=== PATIENT | male | born 1970 | race Caucasian/White ===

== ENCOUNTER 2022-09-29 16:53 | Emergency (ER) | payer OTHER ==
[2022-09-29] MEDS ORDERED: ONDANSETRON 4 MG/2 ML VIAL ONE (17:31)
[2022-09-29] MEDS ORDERED: NA CHLORIDE 0.9% 500 ML ONE (17:31)
[2022-09-29] MEDS ORDERED: MORPHINE 4 MG/ML SYR ONE (17:31)
[2022-09-29] MEDS ORDERED: NA CHLORIDE 0.9% 1,000 ML ONE ×2 (17:32→19:47)
[2022-09-29] MEDS ORDERED: FAMOTIDINE 20 MG/2 ML VIAL IV ONE (17:32)
[2022-09-29 17:46] LABS: Absolute Lymphocytes (CBC) 0.8 K/uL (0.7-4.9); Hematocrit 40.9 % (39.6-49.0); Lymphocytes % 7.4 % (15.3-44.8); MCV 91.9 fL (80-100); MPV 8.7 fL (7.6-11.3); RBC Red Blood Cell Count 4.45 M/uL (4.33-5.43)
--- NOTE | 2022-09-29 17:46 | RAD REPORT ---
EXAM DESCRIPTION: RAD - Chest Single View - 09/29/2022 5:34 pm CLINICAL HISTORY: COUGH COMPARISON: No comparisons FINDINGS: Lines: None. Lungs: No evidence of edema or pneumonia. Pleural: No significant pleural effusions or pneumothorax. Cardiac: The heart size is within normal limits. Mediastinum: Within normal limits. Bones: No acute fractures. Other: None IMPRESSION: No acute cardiopulmonary disease.
[2022-09-29 17:55] LABS: Bilirubin Direct 0.1 mg/dL (0-0.2); Bilirubin Indirect, Calculated 0.4 mg/dL (0.2-0.8); Bilirubin Total 0.5 mg/dL (0.2-1.0); Protein, Total 7.8 g/dL (6.4-8.2); Troponin High Sensitivity 4.4 pg/mL (<58.9)
[2022-09-29 18:02] LABS: Magnesium 2.2 mg/dL (1.6-2.4); Potassium 3.9 mEq/L (3.5-5.1)
--- NOTE | 2022-09-29 18:41 | RAD REPORT ---
EXAM DESCRIPTION: CTStone Protocol - 09/29/2022 6:26 pm CLINICAL HISTORY: Flank pain;Abd pain COMPARISON: No comparisons TECHNIQUE: CT of the abdomen and pelvis was performed without contrast. All CT scans are performed using dose optimization technique as appropriate and may include automated exposure control or mA/KV adjustment according to patient size. FINDINGS: Lower chest: Small hiatal hernia. Thickened distal esophagus which may reflect esophagitis . Liver: No acute abnormality or suspicious lesions. Biliary: No biliary ductal dilatation. Stomach: No significant focal abnormality. Duodenum: No significant focal abnormality. Pancreas: No significant abnormality. Spleen: No significant abnormality. Adrenal: No suspicious lesions. Kidney/ureter: Mild left-sided hydronephrosis. 4 mm stone in the left proximal ureter. Additional geeta ateral renal calculi noted. Low-density left renal lesions noted which are incompletely assessed with out IV contrast but statistically in based on the morphology would suggest a benign process. Retroperitoneum: No retroperitoneal adenopathy. Vascular: No aneurysm. Mild atherosclerosis . Bowel: Normal appendix. No bowel obstruction.. Peritoneum: No ascites or free air. Bladder: Grossly unremarkable. Reproductive: No adnexal masses. Bones: No acute fracture. Other: n/a IMPRESSION: Mild left-sided hydronephrosis secondary to a 4 mm stone in the left proximal ureter. Left renal lesions most likely representing cysts. Consider nonemergent renal ultrasound to confirm.
--- NOTE | 2022-09-29 18:57 | ER ---
Nurse's Notes [facility] Name: Abiel Knott Age: 52 yrs Sex: Male : 1970 Arrival Date: 09/29/2022 Time: 16:53 Bed 2 Private MD: Diagnosis: Abdominal pain, unspecified;Hydronephrosis with renal and ureteral calculous obstruction-4 MM DISTAL LEFT Presentation: 09/29 17:03 Chief complaint: Patient states: left sided flank pain started at noon, after eating, iw vomited once, pain 10/10. no hx of kidney stones. Coronavirus screen: At this time, the client does not indicate any symptoms associated with coronavirus-19. Ebola Screen: Patient negative for fever greater than or equal to 101.5 degrees Fahrenheit, and additional compatible Ebola Virus Disease symptoms Patient denies exposure to infectious person. Patient denies travel to an Ebola-affected area in the 21 days before illness onset. No symptoms or risks identified at this time. Initial Sepsis Screen: Does the patient meet any 2 criteria? No. Patient's initial sepsis screen is negative. Does the patient have a suspected source of infection? No. Patient's initial sepsis screen is negative. Risk Assessment: Do you want to hurt yourself or someone else? Patient reports no desire to harm self or others. Onset of symptoms was September 29, 2022. 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 - Family history:: not pertinent. - Social history:: Smoking status: unknown. Screenin:08 [facility] ED Fall Risk Assessment (Adult) History of falling in the last 3 months, iw including since admission Score/Fall Risk Level 0 - 2 = Low Risk. Abuse screen: Denies threats or abuse. Denies injuries from another. Nutritional screening: No deficits noted. Tuberculosis screening: No symptoms or risk factors identified. Assessment: 17:30 General: Appears uncomfortable, ill, Behavior is cooperative, agitated, anxious. Pain: iw Complains of pain in left low back and left mid back Pain radiates to abdomen. Neuro: Level of Consciousness is awake, alert, obeys commands, Oriented to person, place, time, situation, Moves all extremities. Full function. Respiratory: Respiratory effort is even, unlabored, Respiratory pattern is regular. GI: Bowel sounds present X 4 quads. Abd is soft X 4 quads Reports nausea. : Reports pain in left flank(s). Derm: Skin Skin is clammy, Skin is pale. 18:36 Reassessment: Patient appears in no apparent distress at this time. Patient and/or iw family updated on plan of care and expected duration. Pain level reassessed. Patient is alert, oriented x 3, equal unlabored respirations, skin warm/dry/pink. Patient states feeling better. 19:55 Reassessment: Patient and/or family updated on plan of care and expected duration. Pain ha1 level reassessed. Patient is alert, oriented x 3, equal unlabored respirations, skin warm/dry/pink. Patient states feeling better. Patient states symptoms have improved. Vital Signs: 17:03 BP 135 / 93; Pulse 64; Resp 19; Pulse Ox 98% on R/A; Weight 77.11 kg; Height 5 ft. 11 iw in. ; Pain 10/10; 18:46 BP 115 / 75; Pulse 83; Resp 16; Temp 97.5; Pulse Ox 95% ; iw 19:56 BP 118 / 69; Pulse 80; Resp 15 S; Pulse Ox 96% on R/A; ha1 17:03 Body Mass Index 23.71 (77.11 kg, 180.34 cm) iw 17:03 Pain Scale: Adult iw ED Course: 16:54 Patient arrived in ED. am2 16:57 Rossy Goldman, RN is Primary Nurse. iw 16:59 Feliz Flannery MD is Attending Physician. chapin 17:04 Triage completed. iw 17:04 Arm band placed on. iw 17:36 XRAY Chest (1 view) In Process Unspecified. EDMS 17:40 Missed attempt(s): 22 gauge in left antecubital area. Bleeding controlled, band aid iw applied, catheter tip intact. 17:50 Missed attempt(s): 22 gauge in right antecubital area. Bleeding controlled, band aid iw applied, catheter tip intact. 18:08 Patient has correct armband on for positive identification. Bed in low position. iw Provided Education on: IV insertion . 18:22 Inserted saline lock: 20 gauge in left upper arm, using aseptic technique. Blood iw collected. IV inserted by TRACI Gayle via US. 18:27 CT Stone Protocol In Process Unspecified. EDIA 18:56 Jose Hamilton MD is Referral Physician. [facility] 19:56 No provider procedures requiring assistance completed. IV discontinued, intact, ha1 bleeding controlled, No redness/swelling at site. Pressure dressing applied. Administered Medications: 18:15 Not Given (Duplicate Order): NS 0.9% IV 500 ml IV at bolus once chapin 18:35 Drug: morphine IVP or IV 4 mg Route: IVP; Infused Over: 4 mins; Site: left upper arm; iw 18:35 Drug: Ondansetron IVP 4 mg Route: IVP; Site: left upper arm; iw 18:35 Drug: NS 0.9% IV 1000 ml Route: IV; Rate: 1 bolus; Site: left upper arm; iw 18:36 Drug: Famotidine IVP 20 mg Route: IVP; Site: left upper arm; iw 19:50 Not Given (Physician Discretion): NS 0.9% IV 1000 ml IV at 1 bolus Per protocol; 1000 kl mL bolus 19:51 Drug: Flomax PO 0.4 mg Route: PO; jb4 19:51 Drug: Rocephin IV 1 grams Route: IV; Rate: per protocol; Site: left upper arm; jb4 19:51 Drug: Ketorolac IVP 30 mg Route: IVP; Site: left upper arm; jb4 Medication: 18:08 VIS not applicable for this client. Outcome: 18:57 Discharge ordered by . [facility] 19:56 Discharged to Law Enforcement ha1 19:56 Condition: stable 19:56 Discharge instructions given to patient, residential officers. Instructed on discharge instructions, follow up and referral plans. medication usage, Demonstrated understanding of instructions, follow-up care, medications, Prescriptions given X 4. 19:58 Patient left the ED. ha1 Signatures: Dispatcher [employer] EDIA Feliz Flannery MD MD cha Williams, Irene RN TRACI Frank Mantilla RN RN jb4 Rae Quiroz am2 [place] RN RN ha1 Malena Roberto RN
--- NOTE | 2022-09-29 18:57 | EDPHYS ---
Physician Documentation [facility] Name: Abiel Knott Age: 52 yrs Sex: Male : 1970 Arrival Date: 09/29/2022 Time: 16:53 Bed 2 Private MD: ED Physician Feliz Flannery HPI: 09/29 18:16 This 52 yrs old Male presents to ER via Law Enforcement with complaints of chapin Abdominal Pain. 18:16 The patient presents with abdominal pain in the upper abdomen, in the lower abdomen, chapin abdominal distention in the upper abdomen, in the lower abdomen. Onset: The symptoms/episode began/occurred just prior to arrival. The patient complains of pain in the left low back and left mid back. The pain radiates to the left low back and left mid back. Onset: The symptoms/episode began/occurred today. Onset: The symptoms/episode began/occurred acutely. Modifying factors: The symptoms are alleviated by nothing. the symptoms are aggravated by nothing. Associated signs and symptoms: The patient has no apparent associated signs or symptoms. The symptoms do not radiate. The symptoms are described as sharp. Historical: - Allergies: 17:04 No Known Allergies; iw - Home Meds: 17:04 None [Active]; iw - PMHx: 17:04 Hep C-remission; iw - PSHx: 17:04 hernia; iw - Immunization history:: Adult Immunizations unknown. - Family history:: not pertinent. - Social history:: Smoking status: unknown. ROS: 18:16 Constitutional: Negative for fever, chills, and weight loss, Eyes: Negative for injury, chapin pain, redness, and discharge, ENT: Negative for injury, pain, and discharge, Neck: Negative for injury, pain, and swelling, Cardiovascular: Negative for chest pain, palpitations, and edema, Respiratory: Negative for shortness of breath, cough, wheezing, and pleuritic chest pain, : Negative for injury, bleeding, discharge, and swelling, MS/Extremity: Negative for injury and deformity, Skin: Negative for injury, rash, and discoloration, Neuro: Negative for headache, weakness, numbness, tingling, and seizure, Psych: Negative for depression, anxiety, suicide ideation, homicidal ideation, and hallucinations, Allergy/Immunology: Negative for hives, rash, and allergies, Endocrine: Negative for neck swelling, polydipsia, polyuria, polyphagia, and marked weight changes. 18:16 Respiratory: Positive for 18:16 Abdomen/GI: Positive for abdominal pain, of the anterior aspect of left lateral abdomen, posterior aspect of left lateral abdomen, left upper quadrant and left lower quadrant. 18:16 Back: Positive for flank pain, on the left. Exam: 18:16 Constitutional: This is a well developed, well nourished patient who is awake, alert, chapin and in no acute distress. Head/Face: Normocephalic, atraumatic. Eyes: Pupils equal round and reactive to light, extra-ocular motions intact. Lids and lashes normal. Conjunctiva and sclera are non-icteric and not injected. Cornea within normal limits. Periorbital areas with no swelling, redness, or edema. ENT: Nares patent. No nasal discharge, no septal abnormalities noted. Tympanic membranes are normal and external auditory canals are clear. Oropharynx with no redness, swelling, or masses, exudates, or evidence of obstruction, uvula midline. Mucous membranes moist. Neck: Trachea midline, no thyromegaly or masses palpated, and no cervical lymphadenopathy. Supple, full range of motion without nuchal rigidity, or vertebral point tenderness. No Meningismus. Chest/axilla: Normal chest wall appearance and motion. Nontender with no deformity. No lesions are appreciated. Cardiovascular: Regular rate and rhythm with a normal S1 and S2. No gallops, murmurs, or rubs. Normal PMI, no JVD. No pulse deficits. Respiratory: Lungs have equal breath sounds bilaterally, clear to auscultation and percussion. No rales, rhonchi or wheezes noted. No increased work of breathing, no retractions or nasal flaring. Abdomen/GI: Soft, non-tender, with normal bowel sounds. No distension or tympany. No guarding or rebound. No evidence of tenderness throughout. Back: No spinal tenderness. No costovertebral tenderness. Full range of motion. Male : Normal genitalia with no discharge or lesions. Skin: Warm, dry with normal turgor. Normal color with no rashes, no lesions, and no evidence of cellulitis. MS/ Extremity: Pulses equal, no cyanosis. Neurovascular intact. Full, normal range of motion. Neuro: Awake and alert, GCS 15, oriented to person, place, time, and situation. Cranial nerves II-XII grossly intact. Motor strength 5/5 in all extremities. Sensory grossly intact. Cerebellar exam normal. Normal gait. Psych: Awake, alert, with orientation to person, place and time. Behavior, mood, and affect are within normal limits. 18:59 ECG was reviewed by the Attending Physician. chapin Vital Signs: 17:03 BP 135 / 93; Pulse 64; Resp 19; Pulse Ox 98% on R/A; Weight 77.11 kg; Height 5 ft. 11 iw in. ; Pain 10/10; 18:46 BP 115 / 75; Pulse 83; Resp 16; Temp 97.5; Pulse Ox 95% ; iw 19:56 BP 118 / 69; Pulse 80; Resp 15 S; Pulse Ox 96% on R/A; ha1 17:03 Body Mass Index 23.71 (77.11 kg, 180.34 cm) iw 17:03 Pain Scale: Adult iw MDM: 17:00 Patient medically screened. chapin 18:20 Differential diagnosis: UTI, diverticulitis, pancreatitis, diverticulitis, gastritis, chapin non-specific abd pain, pancreatitis, Peptic Ulcer Disease, Ureterolithiasis, urinary tract infection. Data reviewed: vital signs, nurses notes, lab test result(s), radiologic studies, CT scan. Consideration of Admission/Observation Escalation of care including admission/observation considered. I considered the following discharge prescriptions or medication management in the emergency department Medications were administered in the Emergency Department. See MAR. Independent interpretation of the following test(s) in the Emergency Department CT Scan: My interpretation is CT STONE. Test considered but Not performed: EKG: NO RENAL USG. 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 Care significantly affected by the following chronic conditions: Liver Disease, HEP C. Counseling: I had a detailed discussion with the patient and/or guardian regarding: the historical points, exam findings, and any diagnostic results supporting the discharge/admit diagnosis, lab results, radiology results, the need for outpatient follow up, for definitive care, a family practitioner, a urologist. 09/29 17:02 Order name: Basic Metabolic Panel; Complete Time: 18:11 [facility] 09/29 17:02 Order name: CBC with Diff; Complete Time: 18:11 [facility] 09/29 17:02 Order name: LFT's; Complete Time: 18:11 [facility] 09/29 17:02 Order name: Magnesium; Complete Time: 18:11 [facility] 09/29 17:02 Order name: NT PRO-BNP; Complete Time: 18:11 [facility] 09/29 17:02 Order name: PT-INR [facility] 09/29 17:02 Order name: Troponin HS; Complete Time: 18:11 [facility] 09/29 17:02 Order name: Lipase; Complete Time: 18:11 [facility] 09/29 17:02 Order name: XRAY Chest (1 view); Complete Time: 18:11 [facility] 09/29 18:16 Order name: CT Stone Protocol; Complete Time: 18:53 [facility] 09/29 17:02 Order name: EKG; Complete Time: 17:02 [facility] 09/29 17:02 Order name: EKG - Nurse/Tech; Complete Time: 18:46 [facility] 09/29 17:02 Order name: IV Saline Lock; Complete Time: 18:36 [facility] 09/29 17:02 Order name: Labs collected and sent; Complete Time: 17:22 [facility] 09/29 17:02 Order name: O2 Per Protocol; Complete Time: 18:36 [facility] 09/29 17:02 Order name: O2 Sat Monitoring; Complete Time: 18:36 [facility] EC:59 Rate is 74 beats/min. Rhythm is regular. QRS [place] is Normal. WI interval is normal. QRS chapin interval is normal. QT interval is normal. No Q waves. T waves are Normal. No ST changes noted. Clinical impression: NSR w/ Non-specific ST/T Changes and No evidence of ischemia. Interpreted by me. Reviewed by me. Administered Medications: 18:15 Not Given (Duplicate Order): NS 0.9% IV 500 ml IV at bolus once chapin 18:35 Drug: morphine IVP or IV 4 mg Route: IVP; Infused Over: 4 mins; Site: left upper arm; iw 18:35 Drug: Ondansetron IVP 4 mg Route: IVP; Site: left upper arm; iw 18:35 Drug: NS 0.9% IV 1000 ml Route: IV; Rate: 1 bolus; Site: left upper arm; iw 18:36 Drug: Famotidine IVP 20 mg Route: IVP; Site: left upper arm; iw 19:50 Not Given (Physician Discretion): NS 0.9% IV 1000 ml IV at 1 bolus Per protocol; 1000 kl mL bolus 19:51 Drug: Flomax PO 0.4 mg Route: PO; jb4 19:51 Drug: Rocephin IV 1 grams Route: IV; Rate: per protocol; Site: left upper arm; jb4 19:51 Drug: Ketorolac IVP 30 mg Route: IVP; Site: left upper arm; jb4 Disposition Summary: 09/29/22 18:57 Discharge Ordered Location: Home chapin Problem: new chapin Symptoms: have improved chapin Condition: Stable chapin Diagnosis - Abdominal pain, unspecified chapin - Hydronephrosis with renal and ureteral calculous obstruction - 4 MM DISTAL LEFT chapin Followup: chapin - With: Private Physician - When: 2 - 3 days - Reason: Recheck today's complaints, Continuance of care, Re-evaluation by your physician Followup: chapin - With: Jose Hamilton MD - When: 2 - 3 days - Reason: Recheck today's complaints, Re-evaluation by your physician Discharge Instructions: - Discharge Summary Sheet chapin - Abdominal Pain, Adult chapin - Flank Pain, Adult chapin - Kidney Stones chapin - Kidney Stones, [id number] chapin - Hydronephrosis chapin - Dietary Guidelines to Help Prevent Kidney Stones chapin Forms: - Medication Reconciliation Form chapin - Thank You Letter chapin - Antibiotic Education chapin - Prescription Opioid Use chapin - Patient Portal [email or web address] [facility] Prescriptions: - Flomax 0.4 mg Oral capsule - take 1 capsule by ORAL route every day at bedtime; 20 capsule; Refills: 0, [facility] Product Selection Permitted - acetaminophen-codeine 300-30 mg Oral tablet - take 2 tablet by ORAL route every 6 hours; 24 tablet; Refills: 0, Product [facility] Selection Permitted - Zofran 4 mg Oral Tablet - take 1 tablet by ORAL route every 12 hours As needed; 20 tablet; Refills: 0, [facility] Product Selection Permitted - Cipro 500 mg Oral Tablet - take 1 tablet by ORAL route every 12 hours for 7 days; 14 tablet; Refills: 0, [facility] Product Selection Permitted Signatures: Dispatcher [employer] EDMS Feliz Flannery MD MD cha Williams, Irene RN Frank Joya RN RN jb4 [place] RN RN Malena Carias RN kl Corrections: (The following items were deleted from the chart) 18:22 17:02 Abdomen Pelvis W Con+[id number].RAD.BRZ ordered. EDMS EDMS 18:36 17:02 Cardiac monitoring ordered. chapin iw
[2022-09-29] MEDS ORDERED: KETOROLAC 30 MG/ML INJ ONE (19:47)
[2022-09-29] MEDS ORDERED: TAMSULOSIN 0.4 MG SR CAP ONE (19:47)
[2022-09-29] MEDS ORDERED: CEFTRIAXONE 1000 MG/VIAL ONE (19:47)
[2022-09-29 21:09] VITALS: TEMP 97.5
[2022-09-29 21:11] VITALS: BP 118/69; O2SAT 96
[2022-09-29 22:25] LABS: Protime INR ND
--- NOTE | 2022-09-30 15:45 | EKG ---
Test Date: 2022-09-29 Test Time: 18:42:55 Vertical Borer: NATALIA MEASUREMENT RESULTS: Intervals: Rate: 74 ND: 160 QRSD: 76 QT: 368 QTc: 408 [place]: P: 63 ND: 160 QRS: 56 T: 3 INTERPRETIVE STATEMENTS: Normal sinus rhythm Cannot rule out Anterior infarct, age undetermined Abnormal ECG No previous ECG available for comparison Electronically Signed On 09-30-22 15:43:30 CDT by Drew Trevizo
== END 2022-09-29 19:58 | disposition home or self-care (01) ==
LOC: ER 16:53
DX: N13.2 Hydronephrosis with renal and ureteral calculous obstruction (principal)
CPT/HCPCS: 85025; 80048; 36415; 83735; 85610; 80076; 84484; 83690; 83880; 76377; 74176; 71045; J2405; J0696; 93005; J7030; J7040

== ENCOUNTER 2023-12-30 18:47 | Emergency (ER) | payer OTHER ==
[2023-12-30] MEDS ORDERED: HYDROCODONE/APAP 5/325 MG TAB ONE (19:18)
--- NOTE | 2023-12-30 19:36 | RAD REPORT ---
Exam:Hand Right 3 View HISTORY: Right hand pain FINDINGS: 6 mm bony density abuts the anterior aspect of the fourth terminal tuft. This may be the sequela of o ld trauma. No acute fracture or dislocation seen. Old fracture fifth metacarpal. Endosteal scalloping third middle phalanx of uncertain etiology. It presumably is benign. Follow-up x -ray in one month recommended to assess stability
[2023-12-30] MEDS ORDERED: LIDOCAINE 1% 20 ML MDV ONE (20:45)
--- NOTE | 2023-12-30 22:19 | ER ---
Nurse's Notes [facility] Name: Abiel Knott Age: 53 yrs Sex: Male : 1970 Arrival Date: 12/30/2023 Time: 18:47 Bed 4 Private MD: Diagnosis: Laceration without foreign body of right ring finger without damage to nail Presentation: 12/29 18:57 Chief complaint: Patient states: smashed right ring finger between two feeder troughs tm6 today around 1245. Pain is 8/10, throbbing. Coronavirus screen: Client denies travel out of the [place] in the last 14 days. Ebola Screen: Patient negative for fever greater than or equal to 101.5 degrees Fahrenheit, and additional compatible Ebola Virus Disease symptoms Patient denies exposure to infectious person. Patient denies travel to an Ebola-affected area in the 21 days before illness onset. No symptoms or risks identified at this time. Initial Sepsis Screen: Does the patient meet any 2 criteria? No. Patient's initial sepsis screen is negative. Does the patient have a suspected source of infection? No. Patient's initial sepsis screen is negative. Risk Assessment: Do you want to hurt yourself or someone else? Patient reports no desire to harm self or others. Onset of symptoms was December 30, 2023 at 12:45. 18:57 Method Of Arrival: Law Enforcement: [place] [employer] tm6 18:57 Acuity: NIRMAL 4 tm6 Triage Assessment: 18:58 General: Appears in no apparent distress. uncomfortable, Behavior is calm, cooperative. tm6 Pain: Complains of pain in dorsal aspect of distal phalanx of right ring finger, dorsal aspect of middle phalanx of right ring finger and dorsal aspect of proximal phalanx of right ring finger Pain currently is 8 out of 10 on a pain scale. Quality of pain is described as throbbing. EENT: No signs and/or symptoms were reported regarding the EENT system. Neuro: Level of Consciousness is awake, alert, obeys commands, Oriented to person, place, time, situation. Cardiovascular: Patient's skin is warm and dry. Respiratory: Airway is patent Respiratory effort is even, unlabored, Respiratory pattern is regular, symmetrical. GI:. GI: No signs and/or symptoms were reported involving the gastrointestinal system. Abdomen is flat, non-distended. : No signs and/or symptoms were reported regarding the genitourinary system. Derm: Wound noted dorsal aspect of distal phalanx of right ring finger, dorsal aspect of middle phalanx of right ring finger, dorsal aspect of proximal phalanx of right ring finger and right ring fingernail. Musculoskeletal: Reports pain in dorsal aspect of distal phalanx of right ring finger, dorsal aspect of middle phalanx of right ring finger and dorsal aspect of proximal phalanx of right ring finger Pain is 8 out of 10 on a pain scale. Injury Description: Crush injury sustained to right ring finger was sustained 6-12 hours ago. Historical: - Allergies: 18:58 No Known Allergies; tm6 - PMHx: 18:58 Hep C-remission; tm6 - PSHx: 18:58 hernia; tm6 - Immunization history:: Adult Immunizations up to date. - Infectious Disease History:: Denies. - Social history:: Smoking status: unknown. Screenin:00 [facility] [place] ED Fall Risk Assessment (Adult) History of falling in the last 3 months, tm6 including since admission No falls in past 3 months (0 pts) Confusion or Disorientation No (0 pts) Intoxicated or Sedated No (0 pts) Impaired Gait No (0 pts) Mobility Assist Device Used No (0 pt) Altered Elimination No (0 pt) Score/Fall Risk Level 0 - 2 = Low Risk Oriented to surroundings, Maintained a safe environment, Educated pt \T\ family on fall prevention, incl call for assistance when getting out of bed. Abuse screen: Denies threats or abuse. Denies injuries from another. Nutritional screening: No deficits noted. Tuberculosis screening: No symptoms or risk factors identified. Assessment: 19:00 Reassessment: see triage assessment. tm6 20:40 Reassessment: Patient appears in no apparent distress at this time. No changes from vc1 previously documented assessment. Patient and/or family updated on plan of care and expected duration. Pain level reassessed. Patient is alert, oriented x 3, equal unlabored respirations, skin warm/dry/pink. 22:08 Reassessment: Patient appears in no apparent distress at this time. No changes from vc1 previously documented assessment. Patient and/or family updated on plan of care and expected duration. Pain level reassessed. Patient is alert, oriented x 3, equal unlabored respirations, skin warm/dry/pink. Vital Signs: 18:57 BP 144 / 94; Pulse 77; Resp 19; Temp 98.2(TE); Pulse Ox 98% on R/A; MAP 108 mmHg; tm6 Weight 72.57 kg; Height 5 ft. 11 in. ; Pain 8/10; 19:21 BP 124 / 77; Pulse 77; Resp 16; Pulse Ox 97% ; Pain 6/10; dd2 20:40 BP 117 / 78; Pulse 67; Resp 16; Pulse Ox 96% ; vc1 22:06 BP 162 / 94; Pulse 63; Resp 16; Pulse Ox 96% ; vc1 18:57 Body Mass Index 22.32 (72.57 kg, 180.34 cm) tm6 18:57 Pain Scale: Adult tm6 19:21 Pain Scale: Adult dd2 ED Course: 18:56 Patient arrived in ED. tm6 18:57 [facility] sb4 18:57 Brandon Camacho MD is Attending Physician. sb4 18:58 Triage completed. tm6 18:58 Arm band placed on right wrist. tm6 19:00 Patient has correct armband on for positive identification. Bed in low position. tm6 Provided Education on: use of call vasquez. Client placed on continuous cardiac and pulse oximetry monitoring. NIBP monitoring applied. Pulse ox on. NIBP on. 19:16 LILY GRANADOS, RN is Primary Nurse. dd2 19:19 Hand Right 3 View XRAY In Process Unspecified. EDMS 22:08 Assist provider with laceration repair on right ring fingernail that was 2.5 cm. or vc1 less using sutures. Set up tray. Performed by Nimo Rivera PA-C Dressed with 4X4s, Patient tolerated well. 22:45 Patient did not have IV access during this emergency room visit. vc1 Administered Medications: 19:21 Drug: HYDROcodone-acetaminophen PO 5 mg-325 mg 2 tabs PO once Route: PO; dd2 22:38 Follow up: Response: No adverse reaction; Marked relief of symptoms vc1 22:06 Drug: Lidocaine Infiltration (1 %) 5 ml 5 ml Infiltration once; to bedside {Note: vc1 administered to right pointer finger by Nimo Rivera NP.} Volume: 5 ml; Route: Infiltration; 22:38 Drug: Amoxicillin-Clavulanate PO 875 mg PO once Route: PO; vc1 22:38 Follow up: Response: No adverse reaction; Marked relief of symptoms vc1 Medication: 19:00 VIS not applicable for this client. tm6 Outcome: 22:18 Discharge ordered by . sb4 22:45 Discharged to home ambulatory, vc1 :45 Condition: good :45 Discharge instructions given to patient, Instructed on discharge instructions, follow up and referral plans. Demonstrated understanding of instructions, follow-up care, medications, Prescriptions given X 1, :45 Patient left the ED. vc1 Signatures: Dispatcher [employer] EDMS Saniya Carrera RN RN vc1 Nimo Rivera PA-C PATita [email or web address] Robert Browne RN RN tm6 LILY GRANADOS RN RN dd2
--- NOTE | 2023-12-30 22:19 | EDPHYS ---
Physician Documentation [facility] Name: bAiel Knott Age: 53 yrs Sex: Male : 1970 Arrival Date: 12/30/2023 Time: 18:47 Bed 4 Private MD: ED Physician Brandon Camacho HPI: 12/29 19:55 This 53 yrs old Male presents to ER via Law Enforcement with complaints of Finger sb4 Injury. 12/30 01:49 Patient states that earlier today he was working outside when his right ring finger got sb4 smashed in a gate, sustaining a laceration. Tetanus is up-to-date. Historical: - Allergies: 12/29 18:58 No Known Allergies; tm6 - PMHx: 18:58 Hep C-remission; tm6 - PSHx: 18:58 hernia; tm6 - Immunization history:: Adult Immunizations up to date. - Infectious Disease History:: Denies. - Social history:: Smoking status: unknown. ROS: 12/30 01:49 Constitutional: Negative for fever, chills, and weight loss, sb4 Skin: Positive for ecchymosis, laceration(s), swelling, of the dorsal aspect of distal phalanx of right ring finger, All other systems are negative, Exam: 01:49 Constitutional: This is a well developed, well nourished patient who is awake, alert, sb4 and in no acute distress. Head/Face: Normocephalic, atraumatic. Eyes: Extra-ocular motions intact. Periorbital areas with no swelling, redness, or edema. ENT: Mucous membranes moist. 01:49 Skin: injury, laceration(s), the wound is approximately 4 cm(s), with a depth of .5 cm(s), of the dorsal aspect of distal phalanx of right ring finger, that can be described as clean, no foreign body, irregular, with mild bleeding, Vital Signs: 12/29 18:57 BP 144 / 94; Pulse 77; Resp 19; Temp 98.2(TE); Pulse Ox 98% on R/A; MAP 108 mmHg; tm6 Weight 72.57 kg; Height 5 ft. 11 in. ; Pain 8/10; 19:21 BP 124 / 77; Pulse 77; Resp 16; Pulse Ox 97% ; Pain 6/10; dd2 20:40 BP 117 / 78; Pulse 67; Resp 16; Pulse Ox 96% ; vc1 22:06 BP 162 / 94; Pulse 63; Resp 16; Pulse Ox 96% ; vc1 18:57 Body Mass Index 22.32 (72.57 kg, 180.34 cm) tm6 18:57 Pain Scale: Adult tm6 19:21 Pain Scale: Adult dd2 Laceration: 22:20 Wound Repair of 3cm ( 1.2in ) subcutaneous laceration to dorsal aspect of distal sb4 phalanx of right ring finger. Irregularly shaped.. Distal neuro/vascular/tendon intact. Anesthesia: Local anesthetic administered with 4 mls of 1% lidocaine. Wound prep: Moderate cleansing with betadine by nurse, Wound irrigation with saline by me, Wound explored. Skin closed with 3 5-0 Prolene using simple sutures and sterile technique. Dressed with non-adherent dressing. Patient tolerated well. MDM: 18:57 Patient medically screened. sb4 12/30 01:49 Data reviewed: vital signs, nurses notes, radiologic studies, and as a result, I will sb4 discharge patient. Counseling: I had a detailed discussion with the patient and/or guardian regarding the historical points, exam findings, and any diagnostic results supporting the discharge/admit diagnosis, radiology results, the need for outpatient follow up, For suture removal in 10 to 14 days, to return to the emergency department if symptoms worsen or persist or if there are any questions or concerns that arise at home. 12/29 19:06 Order name: Hand Right 3 View XRAY; Complete Time: 19:42 sb4 12/29 19:45 Order name: Wound Care; Complete Time: 22:06 sb4 12/29 22:18 Order name: Wound dressing; Complete Time: 22:38 sb4 Administered Medications: 12/29 19:21 Drug: HYDROcodone-acetaminophen PO 5 mg-325 mg 2 tabs PO once Route: PO; dd2 22:38 Follow up: Response: No adverse reaction; Marked relief of symptoms vc1 22:06 Drug: Lidocaine Infiltration (1 %) 5 ml 5 ml Infiltration once; to bedside {Note: vc1 administered to right pointer finger by Nimo Rivera NP.} Volume: 5 ml; Route: Infiltration; 22:38 Drug: Amoxicillin-Clavulanate PO 875 mg PO once Route: PO; vc1 22:38 Follow up: Response: No adverse reaction; Marked relief of symptoms vc1 Disposition Summary: 12/30/23 22:18 Discharge Ordered Notes: Location: Home sb4 Problem: new sb4 Symptoms: have improved sb4 Condition: Stable sb4 Diagnosis - Laceration without foreign body of right ring finger without damage to nail sb4 Followup: sb4 - With: Private Physician - When: 10 - 14 days - Reason: Staple/Suture removal Discharge Instructions: - Discharge Summary Sheet sb4 - Laceration Care, Adult, [id number] sb4 Forms: - Antibiotic Education sb4 - Patient Portal Instructions sb4 - Leadership Thank You Letter sb4 Prescriptions: - Augmentin 875-125 mg Oral tablet - take 1 tablet ORAL route every 12 hours for 7 days; 14 tablet; Refills: 0, sb4 Product Selection Permitted Addendum: 01/03/2024 13:28 Co-signature as Attending Physician, Brandon Camacho MD I reviewed the patient's care r t provided by the Advanced Practice Provider and agree with the diagnosis and treatment plan. Signatures: Dispatcher [employer] Saniya Goodson RN RN vc1 Nimo Rivera, PAYaredC PAYaredC sb4 Brandon Camacho MD MD rt Robert Browne RN RN tm6 LILY GRANADOS RN RN dd2
[2023-12-30] MEDS ORDERED: AMOX/K CLAV 875 MG TAB ONE (22:36)
[2023-12-31 02:15] VITALS: TEMP 98.2
[2023-12-31 02:18] VITALS: O2SAT 96
[2023-12-31 02:20] VITALS: BP 162/94
== END 2023-12-30 22:45 | disposition home or self-care (01) ==
LOC: ER 18:47
DX: S61.214A Laceration without foreign body of right ring finger without damage to nail, initial encounter (principal)
CPT/HCPCS: 73130; 12002; J2001; 12042; 99284